=== PATIENT | male | born 1950 | race Caucasian/White ===

== ENCOUNTER 2017-08-19 14:48 | Outpatient (CLI) | payer BC ==
[2017-08-19 15:15] LABS: CALCIUM 9.8 mg/dL (8.5-10.3); CREATININE 1.2 mg/dL (0.6-1.2)
[2017-08-19] MEDS ORDERED: IOPAMIDOL-300 100 ML VIAL ONE (15:35)
[2017-08-19] MEDS ORDERED: IOPAMIDOL-300 100 ML VIAL IVP ONE (17:19)
--- NOTE | 2017-08-19 17:59 | CT Report ---
EXAM: CT ABDOMEN AND PELVIS WITHOUT AND WITH CONTRAST (CT IVP) EXAM DATE: 08/19/2017 05:07 PM. CLINICAL HISTORY: HEMATURIA. COMPARISONS: None. TECHNIQUE: Routine helical imaging was performed through the kidneys, ureters and bladder in the prec ontrast, postcontrast and delayed phase. IV Contrast: 100ML ISOVUE 300. Reconstructions: Coronal and sagittal. In accordance with CT protocol optimization, one or more of the following dose reduction techniques w ere utilized for this exam: automated exposure control, adjustment of mA and/or KV based on patient s ize, or use of iterative reconstructive technique. FINDINGS: Lung Bases: Coronary artery calcifications. Right Kidney/Ureter: No stones, hydronephrosis, or mass. Left Kidney/Ureter: Moderate hydronephrosis. Mild hydroureter. Obstructing stone in the distal left u reter near the pelvic foramina measures 7 x 5 x 6 mm. There are areas of nondependent hypoattenuation along the anterior left renal pelvis, proximal ureter and distal ureter which most likely just refle ct nonopacification due to dilation. No enhancing mass. Tiny Other Solid Organs: The liver, spleen, pancreas, gallbladder, and adrenal glands are unremarkable. Li umu dome is incompletely imaged. The bile ducts are unremarkable. Peritoneal Cavity/Bowel: No free fluid, free air or adenopathy. Sigmoid diverticulosis without evide nce of acute diverticulitis. Pelvic Organs: No bladder stone or mass. Borderline prostate gland enlargement. Vasculature: Infrarenal abdominal aortic aneurysm with mural thrombus or plaque anteriorly measures u p to 3.5 cm. 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 The right common i liac artery measures up to 1.7 cm. Bones: Normal. Other: None. IMPRESSION: 1. Obstructing distal left ureteral stone measuring 7 x 5 x 6 mm causing moderate left hydronephrosis . 2. Areas of nondependent hypoattenuation along the anterior left renal collecting system and ureter a re most likely due to nonopacification related to hydroureteronephrosis. Filling defects due to other etiology would be difficult to excluded. This could be correlated with urine cytology. 3. 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 [facility] The call report notification system was initiated by Dr. Manav Pope at 17:46 hrs on 08/19/17. The above findings were discussed with Dr Rafael Dr by Dr. Manav Pope at 17:58 hrs on 08/19/17. Referring Provider Line: [phone] SITE ID: [id number]
== END 2017-08-19 14:49 | disposition home or self-care (01) ==
LOC: LAB 14:48 → DI 14:49
PROVIDERS: ATTEND Family Medicine
DX: R31.9 Hematuria, unspecified (principal); N13.2 Hydronephrosis with renal and ureteral calculous obstruction
CPT/HCPCS: 36415; 74178; 80048; Q9967

== ENCOUNTER 2017-10-25 03:00 | Outpatient (CLI) | payer BC | END 2017-10-27 03:01 | disposition home or self-care (01) | LOC: LAB.WCP 03:00 | PROVIDERS: ATTEND Family Medicine | DX: N20.0 Calculus of kidney (principal) | CPT/HCPCS: 82365 ==

== ENCOUNTER 2019-04-14 07:25 | Outpatient (CLI) | payer BC ==
[2019-04-14 12:47] LABS: HB2 TOTAL 15.7 g/dL; HEMOGLOBIN A1C 0.93 g/dL; HEMOGLOBIN A1C % 7.6 % (4.6-6.2)
[2019-04-14 12:53] LABS: ALBUMIN 4.4 g/dL (3.2-5.5); ALBUMIN/GLOBULIN RATIO 1.6 (1.0-2.2); ALKALINE PHOSPHATASE 50 IU/L (42-121); ALT ALANINE AMINOTRANSFERASE 30 IU/L (10-60); AST ASPARTATE AMINOTRANSFERASE 25 IU/L (10-42); BILIRUBIN,TOTAL 1.2 mg/dL (0.2-1.0); BUN - BLOOD UREA NITROGEN 17 mg/dL (6-20); CALCIUM 9.5 mg/dL (8.5-10.3); CARBON DIOXIDE - CO2 27 mmol/L (21-32); CHLORIDE 100 mmol/L (101-111); CHOL/HDL RATIO 3.4 (<5.0); CHOLESTEROL 188 mg/dL; GFR - MDRD 74 (>89); GLUCOSE 195 mg/dL (70-100); HDL CHOLESTEROL 55 mg/dL; LDL CHOLESTEROL,CALCULATED 98 mg/dL; LDL/HDL RATIO 1.8 (<3.6); SODIUM 137 mmol/L (135-145); TOTAL PROTEIN 7.2 g/dL (6.7-8.2); VLDL CHOLESTEROL 35 mg/dL
== END 2019-04-14 23:59 | disposition home or self-care (01) ==
LOC: LAB.WCP 07:25
PROVIDERS: ATTEND Family Medicine
DX: E11.9 Type 2 diabetes mellitus without complications (principal); E78.2 Mixed hyperlipidemia
CPT/HCPCS: 36415; 80053; 80061; 83036; 83721

== ENCOUNTER 2020-11-19 08:00 | Outpatient (CLI) | payer BC | END 2020-11-19 23:59 | disposition home or self-care (01) | LOC: LAB.N 08:00 | PROVIDERS: ATTEND Physician Assistant Medical | DX: G44.209 Tension-type headache, unspecified, not intractable (principal); Z20.822 Contact with and (suspected) exposure to COVID-19 ==

== ENCOUNTER 2020-12-27 15:52 | Outpatient (CLI) | payer BC ==
--- NOTE | 2020-12-27 16:44 | XRAY Report ---
PROCEDURE: Shoulder 2 View LT INDICATIONS: LEFT SHOULDER PAIN/ NO STRENGTH TECHNIQUE: 2 views of the shoulder were acquired. COMPARISON: None. FINDINGS: Bones: No fractures or dislocations. No suspicious bony lesions. Visualized ribs appear intact. M oderate acromioclavicular narrowing. Soft tissues: No suspicious soft tissue calcifications. IMPRESSION: Moderate acromioclavicular narrowing. Reviewed by: Chanell Sandra MD on 12/27/2020 4:42 PM PDT Approved by: Chanell Sandra MD on 12/27/2020 4:42 PM PDT Station ID: [id number]
== END 2020-12-27 15:53 | disposition home or self-care (01) ==
LOC: DI.N 15:52
PROVIDERS: ATTEND Family Medicine
DX: M25.811 Other specified joint disorders, right shoulder (principal)

== ENCOUNTER 2021-09-10 06:36 | Outpatient (CLI) | payer BC ==
--- NOTE | 2021-09-10 12:41 | Ultrasound Report ---
PROCEDURE: Retroperitoneal Limited INDICATIONS: AAA TECHNIQUE: Real-time scanning was performed of the retroperitoneal organs, with image documentation. COMPARISON: CT abdomen pelvis 08/19/2017 FINDINGS: Proximal aorta measures at 2.7 cm in diameter. The mid aorta measures 2.2 cm in diameter, and the dis pretty aortic diameter is 3.7 x 3.9 cm., previously 3.5 cm The right common iliac artery measures 1.8 x 1.9 cm, and the left common iliac artery measures 2.5 x 2.7 cm. IMPRESSION: Infrarenal 3.9 cm abdominal aortic aneurysm, slightly larger than prior CT 2018 Reviewed by: Deven Oliver MD on 09/10/2021 11:40 AM SEDRICK Approved by: Deven Oliver MD on 09/10/2021 11:40 AM SEDRICK Station ID: [id number]
== END 2021-09-10 06:37 | disposition home or self-care (01) ==
LOC: DI 06:36
PROVIDERS: ATTEND Family Medicine
DX: I71.4 Abdominal aortic aneurysm, without rupture (principal)

== ENCOUNTER 2022-03-07 10:40 | Outpatient (CLI) | payer BC ==
[2022-03-07 18:44] LABS: CALCIUM 9.7 mg/dL (8.5-10.3); POTASSIUM 4.5 mmol/L (3.5-5.0)
[2022-03-07 21:18] LABS: ESTIMATED AVERAGE GLUCOSE 171 mg/dL (70-100); HEMOGLOBIN A1c% 7.6 % (4.27-6.07)
== END 2022-03-07 10:41 | disposition home or self-care (01) ==
LOC: LAB.N 10:40
PROVIDERS: ATTEND Family Medicine
DX: E11.9 Type 2 diabetes mellitus without complications (principal)
CPT/HCPCS: 36415; 80048; 83036

== ENCOUNTER 2022-06-10 08:52 | Outpatient (CLI) | payer BC ==
[2022-06-10 11:53] LABS: BASOPHILS % (AUTO) 0.3 %; EOSINOPHILS # (AUTO) 0.2 10^3/uL (0.0-0.7); EOSINOPHILS % (AUTO) 3.2 %; HCT - HEMATOCRIT 41.3 % (42.0-52.0); HGB - HEMOGLOBIN 13.2 g/dL (14.0-18.0); LYMPHOCYTES # (AUTO) 1.9 10^3/uL (1.5-3.5); LYMPHOCYTES % (AUTO) 31.7 %; MEAN CORPUSCULAR HEMOGLOBIN 28.3 pg (27.0-31.0); MEAN CORPUSCULAR VOLUME 88.6 fL (80.0-94.0); MONOCYTES # (AUTO) 0.4 10^3/uL (0.0-1.0); MONOCYTES % (AUTO) 6.7 %; NEUTROPHILS # (AUTO) 3.5 10^3/uL (1.5-6.6); NEUTROPHILS % (AUTO) 57.8 %; PLT - PLATELET COUNT 169 10^3/uL (130-450); RED BLOOD COUNT 4.66 10^6/uL (4.70-6.10); RED CELL DISTRIBUTION WIDTH 13.5 % (12.0-15.0)
[2022-06-10 12:02] LABS: ESTIMATED AVERAGE GLUCOSE 166 mg/dL (70-100); HEMOGLOBIN A1c% 7.4 % (4.27-6.07)
[2022-06-10 12:14] LABS: ALBUMIN 3.9 g/dL (3.2-5.5); ALBUMIN/GLOBULIN RATIO 1.3 (1.0-2.2); ALKALINE PHOSPHATASE 50 IU/L (42-121); ALT ALANINE AMINOTRANSFERASE 25 IU/L (10-60); AST ASPARTATE AMINOTRANSFERASE 26 IU/L (10-42); BILIRUBIN,TOTAL 0.8 mg/dL (0.2-1.0); BUN - BLOOD UREA NITROGEN 18 mg/dL (6-20); CALCIUM 9.2 mg/dL (8.5-10.3); CARBON DIOXIDE - CO2 25 mmol/L (21-32); CHLORIDE 106 mmol/L (101-111); CHOL/HDL RATIO 3.5 (<5.0); CHOLESTEROL 174 mg/dL; GFR - MDRD 73 (>89); GLUCOSE 173 mg/dL (70-100); HDL CHOLESTEROL 50 mg/dL; LDL CHOLESTEROL,CALCULATED 98 mg/dL; POTASSIUM 4.1 mmol/L (3.5-5.0); SODIUM 137 mmol/L (135-145); TRIGLYCERIDES 130 mg/dL; VLDL CHOLESTEROL 26 mg/dL
== END 2022-06-10 08:53 | disposition home or self-care (01) ==
LOC: LAB.N 08:52
PROVIDERS: ATTEND Family Medicine
DX: E11.9 Type 2 diabetes mellitus without complications (principal); E78.2 Mixed hyperlipidemia; I10 Essential (primary) hypertension
CPT/HCPCS: 36415; 80053; 80061; 83036; 83721; 85025

== ENCOUNTER 2023-06-11 08:02 | Outpatient (CLI) | payer BC ==
[2023-06-11 12:25] LABS: BASOPHILS % (AUTO) 0.4 %; EOSINOPHILS # (AUTO) 0.2 10^3/uL (0.0-0.7); EOSINOPHILS % (AUTO) 2.8 %; HCT - HEMATOCRIT 42.9 % (42.0-52.0); HGB - HEMOGLOBIN 13.7 g/dL (14.0-18.0); LYMPHOCYTES # (AUTO) 1.8 10^3/uL (1.5-3.5); LYMPHOCYTES % (AUTO) 27.1 %; MEAN CORPUSCULAR HGB CONC 31.9 g/dL (32.0-36.0); MEAN CORPUSCULAR VOLUME 87.7 fL (80.0-94.0); MEAN PLATELET VOLUME 11.1 fL (7.4-11.4); MONOCYTES # (AUTO) 0.4 10^3/uL (0.0-1.0); MONOCYTES % (AUTO) 5.9 %; NEUTROPHILS # (AUTO) 4.3 10^3/uL (1.5-6.6); NEUTROPHILS % (AUTO) 63.5 %; PLT - PLATELET COUNT 195 10^3/uL (130-450); RED BLOOD COUNT 4.89 10^6/uL (4.70-6.10); RED CELL DISTRIBUTION WIDTH 14.3 % (12.0-15.0); WHITE BLOOD COUNT 6.8 x10^3/uL (4.8-10.8)
[2023-06-11 12:47] LABS: ALBUMIN 4.4 g/dL (3.2-5.5); ALBUMIN/GLOBULIN RATIO 1.7 (1.0-2.2); ALKALINE PHOSPHATASE 59 IU/L (42-121); ALT ALANINE AMINOTRANSFERASE 29 IU/L (10-60); AST ASPARTATE AMINOTRANSFERASE 26 IU/L (10-42); BILIRUBIN,TOTAL 0.8 mg/dL (0.2-1.0); BUN - BLOOD UREA NITROGEN 15 mg/dL (6-20); CALCIUM 9.8 mg/dL (8.5-10.3); CARBON DIOXIDE - CO2 27 mmol/L (21-32); CHLORIDE 105 mmol/L (101-111); CHOL/HDL RATIO 3.2 (<5.0); CHOLESTEROL 178 mg/dL; GFR - MDRD 73 (>89); GLUCOSE 183 mg/dL (74-104); HDL CHOLESTEROL 55 mg/dL; LDL CHOLESTEROL,CALCULATED 96 mg/dL; LDL/HDL RATIO 1.7 (<3.6); POTASSIUM 4.5 mmol/L (3.5-4.5); SODIUM 137 mmol/L (135-145); TRIGLYCERIDES 136 mg/dL (48-352); VLDL CHOLESTEROL 27 mg/dL
[2023-06-11 12:57] LABS: THYROID STIMULATING HORMONE 3.17 uIU/mL (0.34-5.60)
[2023-06-11 13:05] LABS: CREATININE,URINE 146.6 mg/dL; MICROALBUM/CREATININE RATIO,UR 6.8 ug/mg (<30.0)
[2023-06-11 13:09] LABS: ESTIMATED AVERAGE GLUCOSE 174 mg/dL (70-100); HEMOGLOBIN A1c% 7.7 % (4.27-6.07)
== END 2023-06-11 08:03 | disposition home or self-care (01) ==
LOC: LAB.N 08:02
PROVIDERS: ATTEND Family Medicine
DX: E11.42 Type 2 diabetes mellitus with diabetic polyneuropathy (principal); E78.2 Mixed hyperlipidemia; I10 Essential (primary) hypertension; Z12.5 Encounter for screening for malignant neoplasm of prostate
CPT/HCPCS: 36415; 80053; 80061; 82043; 82570; 83036; 83721; 84153; 84443; 85025

== ENCOUNTER 2023-06-28 06:53 | Outpatient (CLI) | payer BC, OTHER ==
--- NOTE | 2023-06-28 12:41 | Ultrasound Report ---
PROCEDURE: Renal Ltd (Retroperitoneal Ltd INDICATIONS: AAA TECHNIQUE: Real time scanning was performed of the aorta and iliac arteries, with image documentatio n. COMPARISON: Retroperitoneal ultrasound dated 09/10/2021 FINDINGS: Aorta: Proximal aortic diameter measures 2.8 cm. Mid-aorta measures 2.2 cm. Distal aortic diameter is 3.9 cm. Iliac arteries: Right common iliac artery measures 1.9 cm. Left common iliac artery measures 2.7 cm . IMPRESSION: 1. Stable abdominal aortic aneurysm and left common iliac artery aneurysm when compared with the stud y from 2021. Recommended intervals for follow-up imaging of ectatic aortas and abdominal aortic aneurysms, per ACR consensus guidelines: 2.5-2.9 cm: 5 years 3.0-3.4 cm: 3 years 3.5-3.9 cm: 2 years 4.0-4.4 cm: 1 year 4.5-4.9 cm: 6 months + endovascular referral 5.0-5.5 cm: 3-6 months + endovascular referral Reviewed by: Smiley Coleman MD on 06/28/2023 12:39 PM PDT Approved by: Smiley Coleman MD on 06/28/2023 12:39 PM PDT Station ID: [id number]
== END 2023-06-28 06:54 | disposition home or self-care (01) ==
LOC: DI 06:53
PROVIDERS: ATTEND Family Medicine
DX: I71.43 Infrarenal abdominal aortic aneurysm, without rupture (principal); I72.3 Aneurysm of iliac artery

== ENCOUNTER 2023-12-11 08:17 | Outpatient (CLI) | payer OTHER ==
[2023-12-11 13:00] LABS: CALCIUM 9.8 mg/dL (8.5-10.3); CREATININE 1.2 mg/dL (0.6-1.3); POTASSIUM 4.7 mmol/L (3.5-4.5)
[2023-12-11 13:26] LABS: ESTIMATED AVERAGE GLUCOSE 171 mg/dL (70-100); HEMOGLOBIN A1c% 7.6 % (4.27-6.07)
== END 2023-12-11 08:18 | disposition home or self-care (01) ==
LOC: LAB.N 08:17
PROVIDERS: ATTEND Family Medicine
DX: E11.9 Type 2 diabetes mellitus without complications (principal)
CPT/HCPCS: 36415; 80048; 83036